=== PATIENT | male | born 1995 | race Caucasian/White ===

== ENCOUNTER 2019-06-19 03:46 | Emergency (ER) | payer BC ==
[~2019-06-19] VITALS: Ht 185.4 cm; Wt 72.7 kg
[2019-06-19 03:58] VITALS: Ht 185.4 cm; Wt 72.7 kg
[2019-06-19] MEDS ORDERED: HYDROCODONE-A1 UDTA2 PO (05:31)
[2019-06-19 06:03] VITALS: BP 128/79
== END 2019-06-19 05:57 | disposition home or self-care (01) ==
LOC: D.ER 03:46
DX: S62.306A Unspecified fracture of fifth metacarpal bone, right hand, initial encounter for closed fracture (principal); W17.89XA Other fall from one level to another, initial encounter

== ENCOUNTER 2019-06-25 06:31 | Day surgery (SDC) | payer BC ==
[~2019-06-25] VITALS: Ht 185.4 cm; Wt 72.6 kg
[~2019-06-25 06:31] MED LIST: HYDROCODONE-A1 UDTA2 PO
[2019-06-25 07:15] VITALS: BP 140/94; Ht 185.4 cm; Wt 72.6 kg
[2019-06-25] MEDS ORDERED: PERCOCET 5-3251 TAB PO (09:22)
[2019-06-25] MEDS ORDERED: DURICEF500 MG PO (09:22)
--- NOTE | 2019-06-25 12:53 | NUR ---
PT DC INSTRUCTIONS REVIEWED AT THIS TIME. PT VERBALIZES UNDERSTANDING. PT IV REMOVED AT THIS TIME, NO REDNESS OR SWELLING NOTED AT SITE.
--- NOTE | 2019-06-25 13:00 | NUR ---
PT LEAVING OPS UNIT AT THIS TIME VIA WC. NAD NOTED.
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
== END 2019-06-25 13:00 | disposition home or self-care (01) ==
LOC: D.OPS 06:31 → D.PAN 09:00 → D.OPS 11:45
PROVIDERS: ATTEND Orthopaedic Surgery
DX: S62.394A Other fracture of fourth metacarpal bone, right hand, initial encounter for closed fracture (principal); V89.2XXA Person injured in unspecified motor-vehicle accident, traffic, initial encounter

== ENCOUNTER 2019-06-25 20:05 | Emergency (ER) | payer BC ==
[~2019-06-25] VITALS: Ht 185.4 cm; Wt 72.7 kg
[~2019-06-25 20:05] MED LIST changes: +DURICEF500 MG PO; +PERCOCET 5-3251 TAB PO
[2019-06-25 20:07] VITALS: Ht 185.4 cm; Wt 72.7 kg
[2019-06-25 20:45] VITALS: BP 137/76
== END 2019-06-25 20:45 | disposition home or self-care (01) ==
LOC: D.ER 20:05
DX: G89.18 Other acute postprocedural pain (principal)

== ENCOUNTER 2019-07-15 04:27 | Emergency (ER) | payer BC ==
[~2019-07-15] VITALS: Ht 185.4 cm; Wt 72.7 kg
[2019-07-15 04:34] VITALS: Ht 185.4 cm; Wt 72.7 kg
[2019-07-15] MEDS ORDERED: HYDROCODON-ACE1 EA10 PO (05:59)
[2019-07-15] MEDS ORDERED: NAPROSYN500 MG PO (05:59)
[2019-07-15 06:18] VITALS: BP 127/87
== END 2019-07-15 06:18 | disposition home or self-care (01) ==
LOC: D.ER 04:27
DX: S62.306A Unspecified fracture of fifth metacarpal bone, right hand, initial encounter for closed fracture (principal); S01.80XA Unspecified open wound of other part of head, initial encounter; Y04.0XXA Assault by unarmed brawl or fight, initial encounter